=== PATIENT | female | born 1950 | race Caucasian/White ===

== ENCOUNTER 2024-08-25 22:27 | Inpatient (IN) | payer BC, MEDICARE ==
[~2024-08-25] VITALS: Ht 157.5 cm; Wt 47.6 kg
[2024-08-25 22:56] LABS: BASOPHILS % (AUTO) 0.3 % (0.0-2.0); EOSINOPHILS % (AUTO) 0.6 % (0.0-7.0); HEMATOCRIT 30.5 % (31.2-41.9); HEMOGLOBIN 10.2 g/dL (10.9-14.3); LYMPHOCYTES # (AUTO) 0.5 K/uL (0.8-4.8); LYMPHOCYTES % (AUTO) 6.5 % (20.5-51.5); MEAN CORPUSCULAR HEMOGLOBIN 28.8 uug (24.7-32.8); MEAN CORPUSCULAR HGB CONC 33 g/dL (32.3-35.6); MEAN CORPUSCULAR VOLUME 86.4 fL (75.5-95.3); MONOCYTES # (AUTO) 0.7 K/uL (0.1-1.30); MONOCYTES % (AUTO) 8.5 % (0.0-11.0); NEUTROPHILS # (AUTO) 6.8 K/uL (1.8-8.9); NEUTROPHILS % (AUTO) 84.1 % (38.5-71.5); PLATELET COUNT (AUTO) 237 K/uL (179-408); RED BLOOD CELL COUNT(AUTO) 3.53 MIL/uL (3.63-4.92); RED CELL DISTRIBUTION WIDTH 13.7 % (12.3-17.7); WHITE BLOOD COUNT (AUTO) 8.1 K/uL (3.8-11.8)
[2024-08-25 23:10] LABS: ALANINE AMINOTRANSFERASE 48 U/L (14-59); ALBUMIN 3.7 g/dL (3.4-5.0); ALKALINE PHOSPHATASE 95 U/L (50-136); ASPARTATE AMINOTRANSFERASE 134 U/L (15-37); BILIRUBIN,DIRECT 0.2 mg/dL (0.0-0.2); BILIRUBIN,TOTAL 0.6 mg/dL (0.2-1.0); CALCIUM 8.7 mg/dL (8.5-10.1); CARBON DIOXIDE 27 mmol/L (21-32); CHLORIDE 100 mmol/L (98-107); CREATININE 1.2 mg/dL (0.6-1.3); GLUCOSE 331 mg/dL (74-106); POTASSIUM 3.5 mmol/L (3.5-5.1); SODIUM SERUM 139 mmol/L (136-145); TOTAL PROTEIN, SERUM 7.2 g/dL (6.4-8.2); UREA NITROGEN, BLOOD 34 mg/dL (7-18)
[2024-08-25 23:18] LABS: ETHANOL < 3 MG/DL (0-10); THYROID STIMULATING HORMONE 3.076 mIU/mL (0.358-3.740)
[2024-08-25 23:19] LABS: ACETAMINOPHEN < 10.0 ug/mL (10-30)
[2024-08-26] LABS: *BILIRUBIN,URIN NEGATIVE (NEGATIVE); *CLARITY,URINE CLEAR (CLEAR); *COLOR,URINE YELLOW (YELLOW); *KETONES,URINE 1+ (NEGATIVE); *PROTEIN,URINE NEGATIVE (NEGATIVE); *UROBILINOGEN,URINE 0.2 E.U./dl (NORMAL); LEUKOCYTE ESTERASE ,URINE NEGATIVE (NEGATIVE); NITRITE, URINE NEGATIVE (NEGATIVE); PH,URINE 5.5 (5.0-8.0)
[2024-08-26 00:03] LABS: *BLOOD, URINE TRACE (NEGATIVE); UGLUCOSE 2+ (NEGATIVE)
[2024-08-26] MEDS ORDERED: ONDANSETRON 4 MG/2 ML VIAL ONE (00:08)
[2024-08-26 00:12] LABS: BACTERIA,URINE FEW /HPF (NONE SEEN); SQUAMOUS EPITHELIAL CELL,UR MODERATE /HPF (NONE SEEN); WBC,URINE 0-3 /HPF (0-3)
[2024-08-26 00:13] LABS: URIC ACID CRYSTALS,URINE FEW /HPF (NONE SEEN)
[2024-08-26 00:14] LABS: URINE AMORPHOUS PHOSPHATES RARE /HPF
[2024-08-26] MEDS: ONDANSETRON 4 MG/2 ML VIAL IV ONE (00:15)
[2024-08-26] MEDS: IV NORMAL SALINE 1000 ML BAG IV ONE (00:15)
[2024-08-26 00:16] LABS: *AMPHETAMINE, URINE NEGATIVE (NEGATIVE); *BARBITURATE, URINE NEGATIVE (NEGATIVE); *BENZODIAZEPINE, URINE NEGATIVE (NEGATIVE); *CANNABINOID, URINE NEGATIVE (NEGATIVE); *COCCAINE, URINE NEGATIVE (NEGATIVE); *OPIATE, URINE NEGATIVE (NEGATIVE); *PHENCYCLIDINE SCREEN,URINE NEGATIVE (NEGATIVE); FENTANYL, URINE NEGATIVE (NEGATIVE)
[2024-08-26] MEDS ORDERED: LISI40TA13 PO (00:23)
[2024-08-26] MEDS ORDERED: TRAZ-182 PO (00:23)
[2024-08-26] MEDS ORDERED: LAMO200T10 PO (00:23)
[2024-08-26] MEDS ORDERED: ATOR80TA PO (00:23)
[2024-08-26] MEDS ORDERED: SERT50TA PO (00:23)
[2024-08-26] MEDS ORDERED: AMPH20TA3 PO (00:23)
[2024-08-26] MEDS ORDERED: INSU100V37 SQ (00:28)
[2024-08-26] MEDS ORDERED: INSU100C SUBCUT (00:28)
[2024-08-26] MEDS ORDERED: IBUPROFEN 600 MG TABLET ONE (00:32)
[2024-08-26] MEDS ORDERED: POTASSIUM CHLORIDE 20 MEQ TAB.PRT.SR ONE (00:32)
[2024-08-26] MEDS ORDERED: INSULIN REGULAR, HUMAN 1000 UNIT/10 ML VIAL ONE (00:34)
[2024-08-26] MEDS: IBUPROFEN 600 MG TABLET PO ONE (00:45)
[2024-08-26] MEDS: POTASSIUM CHLORIDE 20 MEQ TAB.PRT.SR PO ONE (00:46)
[2024-08-26] MEDS: INSULIN REGULAR, HUMAN 1000 UNIT/10 ML VIAL IV ONE (00:46)
[2024-08-26] MEDS ORDERED: REMEDY ESSENTIAL ZINC PASTE 113 GM TP PRN (01:15)
[2024-08-26] MEDS ORDERED: DEXTROSE 50% 50 ML DISP.SYRIN IV PRN (01:15)
[2024-08-26] MEDS ORDERED: MAGNESIUM HYDROXIDE 30 ML LIQUID UDC PO PRN (01:15)
[2024-08-26] MEDS ORDERED: ONDANSETRON 4 MG/2 ML VIAL IV PRN (01:15)
[2024-08-26] MEDS ORDERED: ACETAMINOPHEN 325 MG TABLET PO PRN (01:15)
[2024-08-26 02:58] VITALS: BP 152/52; TEMP 97.5; O2SAT 97
[2024-08-26 04:20] VITALS: BP 118/80; TEMP 98.6; O2SAT 96
[2024-08-26 06:32] LABS: BASOPHILS % (AUTO) 0.4 % (0.0-2.0); EOSINOPHILS # (AUTO) 0.1 K/uL (0.0-0.7); EOSINOPHILS % (AUTO) 1.9 % (0.0-7.0); HEMATOCRIT 26.9 % (31.2-41.9); HEMOGLOBIN 9.3 g/dL (10.9-14.3); LYMPHOCYTES # (AUTO) 0.8 K/uL (0.8-4.8); LYMPHOCYTES % (AUTO) 12.1 % (20.5-51.5); MEAN CORPUSCULAR HEMOGLOBIN 29.5 uug (24.7-32.8); MEAN CORPUSCULAR HGB CONC 35 g/dL (32.3-35.6); MEAN CORPUSCULAR VOLUME 85.4 fL (75.5-95.3); MONOCYTES # (AUTO) 0.6 K/uL (0.1-1.30); MONOCYTES % (AUTO) 8.4 % (0.0-11.0); NEUTROPHILS # (AUTO) 5.2 K/uL (1.8-8.9); NEUTROPHILS % (AUTO) 77.2 % (38.5-71.5); PLATELET COUNT (AUTO) 217 K/uL (179-408); RED BLOOD CELL COUNT(AUTO) 3.15 MIL/uL (3.63-4.92); RED CELL DISTRIBUTION WIDTH 13.4 % (12.3-17.7); WHITE BLOOD COUNT (AUTO) 6.7 K/uL (3.8-11.8)
[2024-08-26] MEDS: BLOOD SUGAR DIAGNOSTIC 1 EACH STRIP VI SCH (06:32)
[2024-08-26 06:44] LABS: CARBON DIOXIDE 25 mmol/L (21-32); CHLORIDE 107 mmol/L (98-107); GLUCOSE 72 mg/dL (74-106); POTASSIUM 3.9 mmol/L (3.5-5.1); SODIUM SERUM 143 mmol/L (136-145); UREA NITROGEN, BLOOD 29 mg/dL (7-18)
[2024-08-26 06:48] LABS: DIFFERENTIAL COMMENT 1
[2024-08-26 07:40] VITALS: BP 130/57; TEMP 98.8; O2SAT 96
[2024-08-26] MEDS: LISINOPRIL 20 MG TABLET PO SCH (08:44)
[2024-08-26] MEDS ORDERED: SERTRALINE HCL 50 MG TABLET PO SCH ×2 (09:00)
[2024-08-26] MEDS: INSULIN REGULAR, HUMAN 1000 UNIT/10 ML VIAL SQ PRN (11:29)
[2024-08-26 11:49] VITALS: BP 152/71; TEMP 98.2; O2SAT 96
[2024-08-26] MEDS ORDERED: SERT-440 PO (11:52)
[2024-08-26] MEDS ORDERED: CHLO25TA2 PO (11:53)
[2024-08-26 15:40] VITALS: BP 120/56; TEMP 98.6; O2SAT 94
[2024-08-26] MEDS: SERTRALINE HCL 100 MG TABLET PO SCH (16:36)
[2024-08-26] MEDS: CHLORTHALIDONE 25 MG TABLET PO SCH (16:36)
[2024-08-26 20:02] VITALS: BP 150/52; TEMP 98.5; O2SAT 96
[2024-08-26] MEDS: ATORVASTATIN 40 MG TABLET PO SCH (20:39)
[2024-08-26] MEDS: TRAZODONE 50 MG TABLET PO SCH (20:39)
[2024-08-26] MEDS: LAMOTRIGINE 200 MG TABLET PO SCH (20:39)
[2024-08-27 05:31] VITALS: BP 132/54; TEMP 98.2; O2SAT 93
[2024-08-27 06:52] LABS: BASOPHILS % (AUTO) 0.4 % (0.0-2.0); EOSINOPHILS # (AUTO) 0.1 K/uL (0.0-0.7); LYMPHOCYTES # (AUTO) 0.8 K/uL (0.8-4.8); LYMPHOCYTES % (AUTO) 13.1 % (20.5-51.5); MEAN CORPUSCULAR HEMOGLOBIN 29.2 uug (24.7-32.8); MEAN CORPUSCULAR HGB CONC 33 g/dL (32.3-35.6); MEAN CORPUSCULAR VOLUME 87.9 fL (75.5-95.3); MONOCYTES # (AUTO) 0.5 K/uL (0.1-1.30); MONOCYTES % (AUTO) 8.3 % (0.0-11.0); NEUTROPHILS # (AUTO) 4.7 K/uL (1.8-8.9); NEUTROPHILS % (AUTO) 76.2 % (38.5-71.5); PLATELET COUNT (AUTO) 226 K/uL (179-408); RED BLOOD CELL COUNT(AUTO) 3.42 MIL/uL (3.63-4.92); RED CELL DISTRIBUTION WIDTH 14.2 % (12.3-17.7); WHITE BLOOD COUNT (AUTO) 6.2 K/uL (3.8-11.8)
[2024-08-27 07:08] LABS: ALANINE AMINOTRANSFERASE 39 U/L (14-59); ALBUMIN 3.4 g/dL (3.4-5.0); ALKALINE PHOSPHATASE 83 U/L (50-136); ASPARTATE AMINOTRANSFERASE 57 U/L (15-37); BILIRUBIN,TOTAL 0.4 mg/dL (0.2-1.0); CALCIUM 8.9 mg/dL (8.5-10.1); CARBON DIOXIDE 25 mmol/L (21-32); CHLORIDE 105 mmol/L (98-107); CHOLESTEROL 141 mg/dL (<200); GLUCOSE 312 mg/dL (74-106); HDL CHOLESTEROL 66 mg/dL (40-60); MAGNESIUM 1.9 mg/dL (1.8-2.4); PHOSPHOROUS 3.4 mg/dL (2.5-4.9); POTASSIUM 4.2 mmol/L (3.5-5.1); SODIUM SERUM 140 mmol/L (136-145); TOTAL PROTEIN, SERUM 6.4 g/dL (6.4-8.2); TRIGLYCERIDES 114 MG/DL (30-150); UREA NITROGEN, BLOOD 28 mg/dL (7-18)
[2024-08-27 07:13] LABS: DIFFERENTIAL COMMENT 1; IRON, SERUM 44 ug/dL (50-175)
[2024-08-27 08:00] VITALS: BP 155/62; TEMP 98.6; O2SAT 93
[2024-08-27] MEDS: INSULIN DEGLUDEC 100 UNIT/ML SQ SCH (08:25)
[2024-08-27] MEDS: [UNRECOGNIZED DRUG - OTHER] SQ SCH (08:25)
[2024-08-27 09:24] LABS: BILIRUBIN,DIRECT 0.1 mg/dL (0.0-0.2)
[2024-08-27 12:00] VITALS: BP 138/57; TEMP 98.6; O2SAT 94
== END 2024-08-27 15:20 | disposition home or self-care (01) | DRG 637 ==
LOC: ER 22:27 → TELE3 08-26 00:59 → MEDSURG3 08-26 10:40
PROVIDERS: ATTEND Internal Medicine
DX: E10.65 Type 1 diabetes mellitus with hyperglycemia (principal); N17.0 Acute kidney failure with tubular necrosis; G93.49 Other encephalopathy; L03.116 Cellulitis of left lower limb; R44.1 Visual hallucinations; E86.0 Dehydration; Z88.0 Allergy status to penicillin; Z96.643 Presence of artificial hip joint, bilateral; E78.5 Hyperlipidemia, unspecified; S80.212A Abrasion, left knee, initial encounter; X58.XXXA Exposure to other specified factors, initial encounter; Y92.89 Other specified places as the place of occurrence of the external cause; S80.01XA Contusion of right knee, initial encounter; M15.9 Polyosteoarthritis, unspecified; M50.30 Other cervical disc degeneration, unspecified cervical region; I10 Essential (primary) hypertension; R79.89 Other specified abnormal findings of blood chemistry; R94.31 Abnormal electrocardiogram [ECG] [EKG]; F32.A Depression, unspecified; Z79.899 Other long term (current) drug therapy; Z79.4 Long term (current) use of insulin
CPT/HCPCS: 36415; 70450; 71045; 83550; 83735; 84100; 84443; 84484; 85025; A4606; A4663; A6213; G0378; G0480; J1815; J2405; J7040

== ENCOUNTER 2024-09-24 01:52 | Emergency (ER) | payer MEDICARE ==
[~2024-09-24] VITALS: Ht 157.5 cm; Wt 47.6 kg
[~2024-09-24 01:52] MED LIST: ATOR80TA PO; CHLO25TA2 PO; INSU100C SUBCUT; INSU100V37 SQ; LAMO200T10 PO; LISI40TA13 PO; SERT-440 PO; TRAZ-182 PO
[2024-09-24] MEDS ORDERED: TDAP DIPH,PERTUSS,TET VAC/PF 0.5 ML DISP.SYRIN IM ONE (02:54)
[2024-09-24 02:55] LABS: BASOPHILS % (AUTO) 0.4 % (0.0-2.0); EOSINOPHILS % (AUTO) 0.2 % (0.0-7.0); HEMATOCRIT 31.2 % (31.2-41.9); HEMOGLOBIN 10.4 g/dL (10.9-14.3); LYMPHOCYTES # (AUTO) 0.4 K/uL (0.8-4.8); LYMPHOCYTES % (AUTO) 4.1 % (20.5-51.5); MEAN CORPUSCULAR HEMOGLOBIN 28.8 uug (24.7-32.8); MEAN CORPUSCULAR HGB CONC 33 g/dL (32.3-35.6); MEAN CORPUSCULAR VOLUME 86.6 fL (75.5-95.3); MONOCYTES # (AUTO) 0.6 K/uL (0.1-1.30); MONOCYTES % (AUTO) 5.9 % (0.0-11.0); NEUTROPHILS # (AUTO) 9.2 K/uL (1.8-8.9); NEUTROPHILS % (AUTO) 89.4 % (38.5-71.5); PLATELET COUNT (AUTO) 232 K/uL (179-408); RED BLOOD CELL COUNT(AUTO) 3.61 MIL/uL (3.63-4.92); RED CELL DISTRIBUTION WIDTH 14.1 % (12.3-17.7); WHITE BLOOD COUNT (AUTO) 10.2 K/uL (3.8-11.8)
[2024-09-24] MEDS: TDAP DIPH,PERTUSS,TET VAC/PF 0.5 ML DISP.SYRIN IM ONE (02:55)
[2024-09-24 03:07] LABS: CARBON DIOXIDE 29 mmol/L (21-32); CHLORIDE 100 mmol/L (98-107); CREATININE 1.2 mg/dL (0.6-1.3); GLUCOSE 122 mg/dL (74-106); SODIUM SERUM 139 mmol/L (136-145); UREA NITROGEN, BLOOD 25 mg/dL (7-18)
[2024-09-24 03:08] LABS: AMMONIA 18 umol/L (11-32)
[2024-09-24 03:10] LABS: DIFFERENTIAL COMMENT 1
[2024-09-24 03:14] LABS: ETHANOL < 3 MG/DL (0-10)
[2024-09-24 03:15] LABS: ALANINE AMINOTRANSFERASE 34 U/L (14-59); ALBUMIN 4.5 g/dL (3.4-5.0); ALKALINE PHOSPHATASE 111 U/L (50-136); ASPARTATE AMINOTRANSFERASE 30 U/L (15-37); BILIRUBIN,DIRECT 0.2 mg/dL (0.0-0.2); BILIRUBIN,TOTAL 0.5 mg/dL (0.2-1.0); TOTAL PROTEIN, SERUM 8.1 g/dL (6.4-8.2)
[2024-09-24 03:27] LABS: *BILIRUBIN,URIN NEGATIVE (NEGATIVE); *BLOOD, URINE NEGATIVE (NEGATIVE); *CLARITY,URINE CLEAR (CLEAR); *COLOR,URINE YELLOW (YELLOW); *KETONES,URINE NEGATIVE (NEGATIVE); *PROTEIN,URINE NEGATIVE (NEGATIVE); *UROBILINOGEN,URINE 0.2 E.U./dl (NORMAL); LEUKOCYTE ESTERASE ,URINE NEGATIVE (NEGATIVE); NITRITE, URINE NEGATIVE (NEGATIVE); PH,URINE 5.5 (5.0-8.0); UGLUCOSE NEGATIVE (NEGATIVE)
[2024-09-24 03:37] LABS: ACETAMINOPHEN < 10.0 ug/mL (10-30)
[2024-09-24 03:41] LABS: *AMPHETAMINE, URINE POSITIVE (NEGATIVE); *BARBITURATE, URINE NEGATIVE (NEGATIVE); *BENZODIAZEPINE, URINE NEGATIVE (NEGATIVE); *CANNABINOID, URINE NEGATIVE (NEGATIVE); *COCCAINE, URINE NEGATIVE (NEGATIVE); *OPIATE, URINE NEGATIVE (NEGATIVE); *PHENCYCLIDINE SCREEN,URINE NEGATIVE (NEGATIVE); FENTANYL, URINE NEGATIVE (NEGATIVE)
[2024-09-24] MEDS ORDERED: MAGNESIUM HYDROXIDE 30 ML LIQUID UDC PO PRN (05:45)
[2024-09-24] MEDS ORDERED: DEXTROSE 50% 50 ML DISP.SYRIN IV PRN (05:45)
[2024-09-24] MEDS ORDERED: REMEDY ESSENTIAL ZINC PASTE 113 GM TP PRN (05:45)
[2024-09-24] MEDS ORDERED: ONDANSETRON 4 MG/2 ML VIAL IV PRN (05:45)
[2024-09-24] MEDS ORDERED: ACETAMINOPHEN 325 MG TABLET PO PRN (05:45)
[2024-09-24] MEDS: BLOOD SUGAR DIAGNOSTIC 1 EACH STRIP VI SCH (08:07)
[2024-09-24] MEDS ORDERED: Medication Not On Formulary EA (Lisinopril 40 MG) PO SCH (09:00)
[2024-09-24] MEDS ORDERED: SERTRALINE HCL 50 MG TABLET ONE (09:07)
[2024-09-24] MEDS: SERTRALINE HCL 100 MG TABLET PO SCH (09:10)
[2024-09-24] MEDS ORDERED: IV D5/ 0.9% NACL 1,000 ML IV PRN (09:15)
[2024-09-24] MEDS ORDERED: INSULIN REGULAR, HUMAN 1000 UNIT/10 ML VIAL ONE (11:13)
[2024-09-24] MEDS: INSULIN REGULAR, HUMAN 1000 UNIT/10 ML VIAL SQ PRN (11:17)
[2024-09-24 16:51] VITALS: BP 159/42; TEMP 98.6; O2SAT 97
[2024-09-24] MEDS ORDERED: Medication Not On Formulary EA (Atorvastatin Calcium (Lipitor) 80 MG) PO SCH (21:00)
[2024-09-24] MEDS ORDERED: TRAZODONE 50 MG TABLET PO SCH (21:00)
[2024-09-24] MEDS ORDERED: LAMOTRIGINE 200 MG TABLET PO SCH (21:00)
== END 2024-09-24 16:46 | disposition home or self-care (01) ==
LOC: ER 01:58
DX: E10.649 Type 1 diabetes mellitus with hypoglycemia without coma (principal); D63.8 Anemia in other chronic diseases classified elsewhere; E78.5 Hyperlipidemia, unspecified; E86.0 Dehydration; F32.A Depression, unspecified; G93.40 Encephalopathy, unspecified; R51.9 Headache, unspecified; I11.9 Hypertensive heart disease without heart failure; Z79.899 Other long term (current) drug therapy; Z96.643 Presence of artificial hip joint, bilateral; Z98.1 Arthrodesis status; Z60.2 Problems related to living alone; Z88.0 Allergy status to penicillin
CPT/HCPCS: 87081; 80076; 80048; 81003; 82140; 82550; 82962 ×4; 85025; 85730; 87040 ×2; 84484; 36415; 71045; 70450; 72125; 90715; 97161; 97116; 93005; 99291; 96372; 90471; 83605; 87086; 80299; 80320; 80307; J1815; A4606; A4663; G0480

== ENCOUNTER 2025-07-25 20:49 | Emergency (ER) | payer MEDICARE ==
[~2025-07-25] VITALS: Ht 157.5 cm; Wt 47.6 kg
[2025-07-25] MEDS ORDERED: TDAP DIPH,PERTUSS,TET VAC/PF 0.5 ML DISP.SYRIN IM ONE ×2 (22:00→23:52)
[2025-07-25 22:22] LABS: PLATELET COUNT (AUTO) 308 K/uL (179-408); RED BLOOD CELL COUNT(AUTO) 3.38 MIL/uL (3.63-4.92); RED CELL DISTRIBUTION WIDTH 21.4 % (12.3-17.7); WHITE BLOOD COUNT (AUTO) 9.8 K/uL (3.8-11.8)
[2025-07-25 22:28] LABS: CREATININE 0.9 mg/dL (0.6-1.3); SODIUM SERUM 139 mmol/L (136-145); UREA NITROGEN, BLOOD 34 mg/dL (7-18)
[2025-07-25 22:29] LABS: ETHANOL < 3 MG/DL (0-10)
[2025-07-25 22:34] LABS: ASPARTATE AMINOTRANSFERASE 48 U/L (15-37); TOTAL PROTEIN, SERUM 7.4 g/dL (6.4-8.2)
[2025-07-25 22:42] LABS: NT-PRO BNP 482 pg/mL (0-125)
[2025-07-25 23:23] LABS: EOSINOPHILS % (MANUAL) 2 % (0-8); LYMPHOCYTES % (MANUAL) 9 % (20-40); MONOCYTES % (MANUAL) 9 % (2-10); NEUTROPHILS % (MANUAL) 80 % (42-75); PLATELET ESTIMATE ADEQUATE
[2025-07-25 23:47] LABS: *BILIRUBIN,URIN NEGATIVE (NEGATIVE); *COLOR,URINE YELLOW (YELLOW); *KETONES,URINE 1+ (NEGATIVE); *PROTEIN,URINE TRACE (NEGATIVE); *UROBILINOGEN,URINE 0.2 E.U./dl (NORMAL); LEUKOCYTE ESTERASE ,URINE NEGATIVE (NEGATIVE); NITRITE, URINE NEGATIVE (NEGATIVE); UGLUCOSE NEGATIVE (NEGATIVE)
[2025-07-25 23:49] LABS: *BLOOD, URINE TRACE (NEGATIVE); *CLARITY,URINE HAZY (CLEAR)
[2025-07-25 23:56] LABS: SQUAMOUS EPITHELIAL CELL,UR FEW /HPF (NONE SEEN)
[2025-07-26] LABS: *AMPHETAMINE, URINE POSITIVE (NEGATIVE); *BARBITURATE, URINE NEGATIVE (NEGATIVE); *BENZODIAZEPINE, URINE NEGATIVE (NEGATIVE); *CANNABINOID, URINE NEGATIVE (NEGATIVE); *COCCAINE, URINE NEGATIVE (NEGATIVE); *OPIATE, URINE NEGATIVE (NEGATIVE); *PHENCYCLIDINE SCREEN,URINE NEGATIVE (NEGATIVE); FENTANYL, URINE NEGATIVE (NEGATIVE)
[2025-07-26 08:35] VITALS: BP 140/73
[2025-07-26 09:50] VITALS: BP 140/73; TEMP 98; O2SAT 98
== END 2025-07-26 09:50 | disposition home or self-care (01) ==
LOC: ER 20:56
DX: S01.81XA Laceration without foreign body of other part of head, initial encounter (principal); F32.A Depression, unspecified; E78.5 Hyperlipidemia, unspecified; E10.9 Type 1 diabetes mellitus without complications; I51.9 Heart disease, unspecified; Z79.899 Other long term (current) drug therapy; Z88.0 Allergy status to penicillin; Z96.643 Presence of artificial hip joint, bilateral; Z98.1 Arthrodesis status; W01.0XXA Fall on same level from slipping, tripping and stumbling without subsequent striking against object, initial encounter; Y93.89 Activity, other specified; Y92.89 Other specified places as the place of occurrence of the external cause; Y99.9 Unspecified external cause status
CPT/HCPCS: 36415; 70030-TC; 70450; 71045; 72125; 84484; 90715; A4606; A4663; G0480